=== PATIENT | male | born 1995 | race Two or more races ===

== ENCOUNTER 2018-10-25 17:05 | Emergency (ER) | payer MEDICAID ==
[~2018-10-25] VITALS: Ht 177.8 cm; Wt 80.7 kg
[2018-10-25 17:05] VITALS: BP 131/69
[2018-10-25] MEDS ORDERED: FLUORESCEIN SODIUM OPHTH 1 EA STRIP ONE (17:47)
[2018-10-25] MEDS ORDERED: TETRACAINE HCL/PF 0.5% UD 2 ML BOTTLE ONE (17:47)
[2018-10-25] MEDS ORDERED: FLUORESCEIN SODIUM OPHTH 1 EA STRIP OP ONE (18:00)
[2018-10-25] MEDS ORDERED: TETRACAINE HCL/PF 0.5% UD 2 ML BOTTLE LEFTEYE ONE (18:00)
== END 2018-10-25 18:27 | disposition home or self-care (01) ==
LOC: ER 17:15
DX: H10.89 Other conjunctivitis (principal)

== ENCOUNTER 2019-05-23 09:47 | Emergency (ER) | payer SELFPAY ==
[~2019-05-23] VITALS: Ht 175.3 cm; Wt 84.6 kg
--- NOTE | 2019-05-23 09:54 | NUR ---
DR CHAPMAN AT BEDSIDE
--- NOTE | 2019-05-23 09:55 | NUR ---
BIB SELF C/O R UPPER CHEST PAIN SHARP NON RADIATING STARTED YESTERDAY. TO ER BED 1, HOOKED TO MONITOR, CHANGED TO HOSPITAL GOWN, PROVIDED W WARM BLANKET, PATIENT AOx4 , BREATHING EVEN AND UNLABORED, AWAITING MD GALINDO.
[2019-05-23] MEDS ORDERED: IBUPROFEN 600 MG TABLET PO ONE ×2 (09:58→10:00)
--- NOTE | 2019-05-23 10:03 | NUR ---
RESIDENTIAL MANAGER AT BEDSIDE
--- NOTE | 2019-05-23 11:05 | NUR ---
Patient discharged to home in stable condition. Written and verbal after care instructions given. Patient verbalizes understanding of instruction.
[2019-05-23 11:11] VITALS: BP 149/89
== END 2019-05-23 11:12 | disposition home or self-care (01) ==
LOC: ER 09:49
DX: M94.0 Chondrocostal junction syndrome [Tietze] (principal); R42 Dizziness and giddiness; M79.18 Myalgia, other site; F17.200 Nicotine dependence, unspecified, uncomplicated
CPT/HCPCS: 71046

== ENCOUNTER 2019-09-10 16:00 | Emergency (ER) | payer MEDICAID ==
[~2019-09-10] VITALS: Ht 175.3 cm; Wt 74.8 kg
[2019-09-10 16:15] VITALS: BP 156/99
== END 2019-09-10 17:03 | disposition home or self-care (01) ==
LOC: ER 16:02
DX: J32.9 Chronic sinusitis, unspecified (principal); J30.9 Allergic rhinitis, unspecified